=== PATIENT | female | born 1955 | race African-American/Black ===

== ENCOUNTER 2021-03-02 12:46 | Inpatient (IN) | payer MEDICARE, MEDICAID ==
[~2021-03-02] VITALS: Ht 157.5 cm; Wt 103.6 kg
[~2021-03-02 12:46] MED LIST: CARI350T27 PO; FESO4TAB PO; METF-415 PO; PREG75CA PO
[2021-03-02] MEDS ORDERED: NOREPINEPHRINE 8 MG in DEXT 5% WATER 242 ML IV STA (13:52)
[2021-03-02] MEDS ORDERED: VANCOMYCIN 1 G PREMIX 200 ML IV ONE (14:00)
[2021-03-02] MEDS ORDERED: SODIUM CHLORIDE 0.9% 1000ML BAG (SEPSIS BOLUS) IV ONE (14:00)
[2021-03-02] MEDS ORDERED: PIPERACILLIN/TAZ 3.375G PREMIX 50 ML IV ONE (14:00)
[2021-03-02 14:37] LABS: CHLORIDE 111 mEq/L (98-107)
[2021-03-02 14:40] LABS: INR 1.1
[2021-03-02] MEDS ORDERED: NOREPINEPHRINE 8MG/250ML PMX 250 ML IV STA (14:51)
[2021-03-02 15:16] LABS: BASOPHILS % 0.2 % (0.0-2.0); EOSINOPHILS % 0.4 % (0.0-5.0); HEMATOCRIT. 32.4 % (36.0-48.0); HEMOGLOBIN. 10.9 g/dL (12.0-16.0); LYMPHOCYTES % 11.4 % (20.0-50.0); MEAN CORPUSCULAR HEMOGLOBIN 30.9 pg (28.0-32.0); MEAN CORPUSCULAR VOLUME 91.7 fL (81.0-99.0); MONOCYTES % 6.5 % (2.0-8.0); NEUTROPHILS % 81.5 % (40.0-76.0); PLATELET 127 x1000/uL (130-400); RED BLOOD CELL COUNT 3.53 mill/uL (4.2-5.4); RED CELL DISTRIBUTION WIDTH 16.7 % (11.6-14.6)
[2021-03-02] MEDS ORDERED: FENTANYL CITRATE/PF 50MCG/ML 2ML VIAL IV ONE (17:30)
[2021-03-02 17:40] LABS: CLARITY URINE TURBID (CLEAR); COLOR URINE DARK YELLOW (YELLOW); KETONES URINE TRACE (NEGATIVE); LEUKOCYTE ESTERASE URINE 3+ (NEGATIVE); NITRITE URINE NEGATIVE (NEGATIVE); OCCULT BLOOD URINE 1+ (NEGATIVE); PROTEIN URINE 2+ (NEGATIVE); SPECIFIC GRAVITY URINE 1.024 (1.005-1.030)
[2021-03-02] MEDS ORDERED: IPRATROPIUM/ALBUTEROL 0.5-3(2.5)MG/3ML NEB HHN PRN (18:45)
[2021-03-02] MEDS ORDERED: MAGNESIUM/ALUMINUM HYDROXIDE/SIMETHICONE 30ML UDC PO PRN (20:00)
[2021-03-02] MEDS ORDERED: DEXTROSE 50% WATER 50ML SYRINGE IV PRN ×2 (20:00)
[2021-03-02] MEDS ORDERED: CLONIDINE 0.1MG TABLET PO PRN (20:00)
[2021-03-02] MEDS ORDERED: ONDANSETRON HCL 4MG/2ML INJ IV PRN (20:00)
[2021-03-02] MEDS: BLOOD SUGAR DIAGNOSTIC STRIP TEST SCH (21:00)
[2021-03-02] MEDS: PIPERACILLIN/TAZOBACTAM 2.25 G in DEXTROSE 5% WATER 50 ML IV SCH (22:22)
[2021-03-02] MEDS: INSULIN LISPRO 100 UNITS/ML SUBCUT SCH (22:24)
[2021-03-02] MEDS: HYDROCODONE/ACETAMINOPHEN 5/325MG TABLET PO PRN (22:24)
[2021-03-02] MEDS: SODIUM CHLORIDE 0.9% 1,000 ML IV SCH (22:39)
[2021-03-02] MEDS ORDERED: NOREPINEPHRINE 8MG/250ML PMX 250 ML IV PRN (23:00)
[2021-03-02] MEDS: ENOXAPARIN 30MG/0.3ML SYR SUBCUT SCH (23:06)
[2021-03-03] VITALS (45 sets, daily range): BP systolic 92–123; BP diastolic 49–70
[2021-03-03] MEDS: PIPERACILLIN/TAZOBACTAM 2.25 G in DEXTROSE 5% WATER 50 ML IV SCH ×2 (02:02→08:33)
[2021-03-03] MEDS: HYDROCODONE/ACETAMINOPHEN 5/325MG TABLET PO PRN ×5 (02:38→23:04)
[2021-03-03] MEDS: BLOOD SUGAR DIAGNOSTIC STRIP TEST SCH ×4 (06:49→21:00)
[2021-03-03] MEDS: OMEPRAZOLE 20MG CAPSULE EXTENDED RELEASE PO SCH (06:59)
[2021-03-03] MEDS: INSULIN LISPRO 100 UNITS/ML SUBCUT SCH ×4 (07:01→23:08)
[2021-03-03] MEDS: ACETAMINOPHEN 325MG TABLET PO PRN (12:04)
[2021-03-03] MEDS: NOREPINEPHRINE 32 MG in DEXT 5% WATER 218 ML IV PRN (12:34)
[2021-03-03 12:35] LABS: HEMATOCRIT. 31.7 % (36.0-48.0); HEMOGLOBIN. 10.2 g/dL (12.0-16.0); MEAN CORPUSCULAR HEMOGLOBIN 29.9 pg (28.0-32.0); MEAN CORPUSCULAR VOLUME 92.9 fL (81.0-99.0); MEAN PLATELET VOLUME 8.8 fl (7.4-10.4); PLATELET 107 x1000/uL (130-400); RED BLOOD CELL COUNT 3.41 mill/uL (4.2-5.4); RED CELL DISTRIBUTION WIDTH 16.9 % (11.6-14.6)
[2021-03-03 12:47] LABS: PHOSPHORUS 4.1 mg/dL (2.5-4.9)
[2021-03-03] MEDS: PIPERACILLIN/TAZOBACTAM 2.25G in DEXTROSE 5% WATER 50ML IV SCH ×2 (13:59→21:00)
[2021-03-03] MEDS: SODIUM CHLORIDE 0.9% 1,000 ML IV SCH (13:59)
[2021-03-03] MEDS ORDERED: VANCOMYCIN 500 MG PREMIX 100 ML IV SCH (14:00)
[2021-03-03 18:13] LABS: PLATELET ESTIMATE DECREASED
[2021-03-03] MEDS ORDERED: NALOXONE HCL 0.4MG/ML VIAL IV PRN (18:15)
[2021-03-03 20:38] LABS: BG BASE EXCESS -9.2 mmol/L (-2.0-2.0); BG DEOXYHEMOGLOBIN 2.1 % (0.0-5.0); BG FRACTION INSPIRED OXYGEN 36; BG HCO3 ACT 16.8 mmol/L (22.0-26.0); BG METHEMOGLOBIN 0.2 % (0.0-1.5); BG OXYGEN SATURATION 97.9 % (92.0-98.5); BG OXYHEMOGLOBIN 97.7 % (94.0-97.0); BG PCO2 37.1 mmHg (35.0-45.0); BG PH 7.275 (7.350-7.450); BG PO2 106.8 mmHg (75.0-100.0); BG SAMPLE SITE RIGHT BRACHIAL; BG TOTAL HEMOGLOBIN 10.2 g/dL (12.0-18.0); BG VENT MODE NASAL CANNULA
[2021-03-03] MEDS ORDERED: INSULIN GLARGINE UD 100 UNITS/ML SYR SUBCUT SCH (22:00)
[2021-03-03] MEDS: ENOXAPARIN 30MG/0.3ML SYR SUBCUT SCH (23:03)
[2021-03-03] MEDS: CEFEPIME 2,000 MG in DEXT 5% WATER 100 ML IV SCH (23:56)
[2021-03-04] VITALS (90 sets, daily range): BP systolic 77–135; BP diastolic 38–66
[2021-03-04] MEDS: HYDROCODONE/ACETAMINOPHEN 5/325MG TABLET PO PRN ×3 (04:27→21:06)
[2021-03-04] MEDS: OMEPRAZOLE 20MG CAPSULE EXTENDED RELEASE PO SCH (05:40)
[2021-03-04] MEDS: PIPERACILLIN/TAZOBACTAM 2.25G in DEXTROSE 5% WATER 50ML IV SCH (05:40)
[2021-03-04 05:45] LABS: BASOPHILS % 0.3 % (0.0-2.0); EOSINOPHILS % 5.6 % (0.0-5.0); HEMATOCRIT. 27.2 % (36.0-48.0); HEMOGLOBIN. 9.1 g/dL (12.0-16.0); LYMPHOCYTES % 8.1 % (20.0-50.0); MEAN CORPUSCULAR HEMOGLOBIN 30.6 pg (28.0-32.0); MEAN CORPUSCULAR VOLUME 91.5 fL (81.0-99.0); MEAN PLATELET VOLUME 9.2 fl (7.4-10.4); MONOCYTES % 5.3 % (2.0-8.0); NEUTROPHILS % 80.7 % (40.0-76.0); PLATELET 92 x1000/uL (130-400); RED BLOOD CELL COUNT 2.97 mill/uL (4.2-5.4)
[2021-03-04] MEDS: BLOOD SUGAR DIAGNOSTIC STRIP TEST SCH ×4 (06:57→20:52)
[2021-03-04] MEDS: INSULIN LISPRO 100 UNITS/ML SUBCUT SCH ×5 (08:12→21:04)
[2021-03-04 09:06] LABS: ABSOLUTE LYMPHOCYTES 0.8 x10E3/uL (0.7-3.1); ABSOLUTE MONOCYTES 0.3 x10E3/uL (0.1-0.9); ABSOLUTE NEUTROPHILS 13.8 x10E3/uL (1.4-7.0); BASOPHILS 0 % (Not Estab.); HEMATOCRIT 31.3 % (34.0-46.6); HEMATOLOGY COMMENT Note: (.); HEMOGLOBIN 10.3 g/dL (11.1-15.9); LYMPHOCYTES 5 % (Not Estab.); MEAN CORPUSCULAR HEMOGLOBIN 30.2 pg (26.6-33.0); MEAN CORPUSCULAR HGB CONC. 32.9 g/dL (31.5-35.7); MEAN CORPUSCULAR VOLUME 92 fL (79-97); MONOCYTES 2 % (Not Estab.); NEUTROPHILS 85 % (Not Estab.); PLATELETS 104 x10E3/uL (150-450); RBC 3.41 x10E6/uL (3.77-5.28); RED CELL DISTRIBUTION WIDTH 15.2 % (11.7-15.4); WBC 15.3 x10E3/uL (3.4-10.8)
[2021-03-04] MEDS ORDERED: LORAZEPAM 2MG/ML CPJ IV NR (10:45)
[2021-03-04] MEDS: CEFEPIME 2,000 MG in DEXT 5% WATER 100 ML IV SCH (11:06)
[2021-03-04] MEDS: SODIUM BICARBONATE 650 MG TABLET PO SCH ×3 (11:06→21:01)
[2021-03-04] MEDS: SODIUM CHLORIDE 0.9% 1,000 ML IV SCH ×2 (11:06→20:57)
[2021-03-04] MEDS ORDERED: CEFTRIAXONE 2 G PREMIX 50 ML IV SCH (12:45)
[2021-03-04 13:07] LABS: % CD 3 POS. LYMPHOCYTES 74.5 % (57.5-86.2); % CD 4 POS. LYMPHOCYTES 37.9 % (30.8-58.5); % CD 8 POS. LYMPH 38.5 % (12.0-35.5); ABSOLUTE CD 3 596 /uL (622-2402); ABSOLUTE CD 4 HELPER 303 /uL (359-1519); ABSOLUTE CD 8 SUPPRESSOR 308 /uL (109-897); CD4/CD8 RATIO 0.98 (0.92-3.72)
[2021-03-04] MEDS: CEFTRIAXONE 2 G in DEXTROSE 5% WATER 50 ML IV SCH (16:57)
[2021-03-04] MEDS: NOREPINEPHRINE 32 MG in DEXT 5% WATER 218 ML IV PRN (20:59)
[2021-03-04] MEDS: ENOXAPARIN 30MG/0.3ML SYR SUBCUT SCH (21:02)
[2021-03-05] VITALS (54 sets, daily range): BP systolic 55–130; BP diastolic 26–80
[2021-03-05] MEDS: HYDROCODONE/ACETAMINOPHEN 5/325MG TABLET PO PRN ×5 (01:45→21:00)
[2021-03-05 06:04] LABS: BASOPHILS % 0.6 % (0.0-2.0); EOSINOPHILS % 2.8 % (0.0-5.0); HEMATOCRIT. 27.2 % (36.0-48.0); HEMOGLOBIN. 9.2 g/dL (12.0-16.0); LYMPHOCYTES % 11.5 % (20.0-50.0); MEAN CORPUSCULAR HEMOGLOBIN 30.7 pg (28.0-32.0); MEAN CORPUSCULAR VOLUME 90.7 fL (81.0-99.0); MEAN PLATELET VOLUME 9.3 fl (7.4-10.4); MONOCYTES % 6.3 % (2.0-8.0); NEUTROPHILS % 78.8 % (40.0-76.0); PLATELET 98 x1000/uL (130-400); RED BLOOD CELL COUNT 2.99 mill/uL (4.2-5.4); RED CELL DISTRIBUTION WIDTH 16.9 % (11.6-14.6)
[2021-03-05] MEDS: SODIUM BICARBONATE 650 MG TABLET PO SCH ×3 (06:08→21:00)
[2021-03-05] MEDS: INSULIN LISPRO 100 UNITS/ML SUBCUT SCH ×4 (06:12→21:00)
[2021-03-05] MEDS: OMEPRAZOLE 20MG CAPSULE EXTENDED RELEASE PO SCH (06:14)
[2021-03-05] MEDS: BLOOD SUGAR DIAGNOSTIC STRIP TEST SCH ×4 (06:14→20:51)
[2021-03-05] MEDS: DOCUSATE SODIUM 100MG CAPSULE PO PRN (06:14)
[2021-03-05] MEDS ORDERED: MIDODRINE HCL 5MG TABLET PO NR (11:00)
[2021-03-05] MEDS: CETIRIZINE 10MG TABLET PO SCH (13:36)
[2021-03-05] MEDS: SODIUM CHLORIDE 0.9% 1,000 ML IV SCH (13:36)
[2021-03-05] MEDS: CEFTRIAXONE 2 G in DEXTROSE 5% WATER 50 ML IV SCH (14:50)
[2021-03-05] MEDS ORDERED: ENOXAPARIN 40MG/0.4ML SYR SUBCUT SCH (21:00)
[2021-03-06] VITALS (11 sets, daily range): BP systolic 111–141; BP diastolic 53–64
[2021-03-06] MEDS: HYDROCODONE/ACETAMINOPHEN 5/325MG TABLET PO PRN ×3 (02:07→21:21)
[2021-03-06 05:48] LABS: HEMOGLOBIN. 9.3 g/dL (12.0-16.0); MEAN CORPUSCULAR HEMOGLOBIN 30.4 pg (28.0-32.0); MEAN CORPUSCULAR VOLUME 91.8 fL (81.0-99.0); MEAN PLATELET VOLUME 9.1 fl (7.4-10.4); PLATELET 111 x1000/uL (130-400); RED BLOOD CELL COUNT 3.05 mill/uL (4.2-5.4); RED CELL DISTRIBUTION WIDTH 17.3 % (11.6-14.6)
[2021-03-06] MEDS: SODIUM BICARBONATE 650 MG TABLET PO SCH ×3 (06:22→21:19)
[2021-03-06] MEDS: OMEPRAZOLE 20MG CAPSULE EXTENDED RELEASE PO SCH (06:23)
[2021-03-06] MEDS: BLOOD SUGAR DIAGNOSTIC STRIP TEST SCH ×4 (07:47→21:00)
[2021-03-06] MEDS: INSULIN LISPRO 100 UNITS/ML SUBCUT SCH ×4 (07:47→21:00)
[2021-03-06] MEDS: CETIRIZINE 10MG TABLET PO SCH (08:48)
[2021-03-06] MEDS: ACETAMINOPHEN 325MG TABLET PO PRN (11:18)
[2021-03-06] MEDS: CEFTRIAXONE 2 G in DEXTROSE 5% WATER 50 ML IV SCH (15:33)
[2021-03-06] MEDS: ENOXAPARIN 30MG/0.3ML SYR SUBCUT SCH (21:20)
[2021-03-07] VITALS (13 sets, daily range): BP systolic 122–147; BP diastolic 58–81
[2021-03-07] MEDS: HYDROCODONE/ACETAMINOPHEN 5/325MG TABLET PO PRN ×3 (01:46→10:51)
[2021-03-07 04:11] LABS: *HIV-1 RNA BY PCR 150 copies/mL (.)
[2021-03-07] MEDS: SODIUM BICARBONATE 650 MG TABLET PO SCH ×3 (06:47→22:06)
[2021-03-07] MEDS: OMEPRAZOLE 20MG CAPSULE EXTENDED RELEASE PO SCH (06:48)
[2021-03-07] MEDS: BLOOD SUGAR DIAGNOSTIC STRIP TEST SCH ×4 (07:30→19:51)
[2021-03-07] MEDS: CEFAZOLIN 2,000 MG in DEXT 5% WATER 100 ML IV SCH ×3 (08:41→16:27)
[2021-03-07] MEDS: CETIRIZINE 10MG TABLET PO SCH (08:41)
[2021-03-07] MEDS: ENOXAPARIN 30MG/0.3ML SYR SUBCUT SCH ×2 (08:41→20:35)
[2021-03-07] MEDS: INSULIN LISPRO 100 UNITS/ML SUBCUT SCH ×4 (08:42→20:33)
[2021-03-07 09:13] LABS: PLATELET ESTIMATE DECREASED
[2021-03-07] MEDS: DOCUSATE SODIUM 100MG CAPSULE PO PRN ×2 (10:50→18:47)
[2021-03-07] MEDS ORDERED: CETI10TA6 PO (13:39)
[2021-03-07] MEDS ORDERED: OMEP20CA14 PO (13:39)
[2021-03-07] MEDS ORDERED: LEVO750T46 MT (13:44)
[2021-03-07] MEDS ORDERED: ALBU6.7H9 INH (13:44)
[2021-03-07] MEDS: ACETAMINOPHEN 325MG TABLET PO PRN (17:38)
[2021-03-07] MEDS ORDERED: HYDROCODONE/ACETAMINOPHEN 5/325MG TABLET PO PRN (22:30)
[2021-03-08] VITALS: BP 132/65
== END 2021-03-08 00:04 | disposition home health service (06) | DRG 974 ==
LOC: ER 12:46 → EDBEDREQSVC 13:57 → EDBEDREQ 13:57 → MICUSO 21:18 → MICUNO 03-03 09:04 → 5EST 03-05 18:00
PROVIDERS: ADMIT Family Medicine Adult Medicine; ATTEND Family Medicine Adult Medicine
PROC: 05HY33Z Insertion of Infusion Device into Upper Vein, Percutaneous Approach (ICD-10-PCS; principal; 2021-03-02)
PROC: B54MZZA Ultrasonography of Right Upper Extremity Veins, Guidance (ICD-10-PCS; 2021-03-02)
DX: A41.51 Sepsis due to Escherichia coli [E. coli] (principal); R65.21 Severe sepsis with septic shock; B20 Human immunodeficiency virus [HIV] disease; N17.0 Acute kidney failure with tubular necrosis; E44.0 Moderate protein-calorie malnutrition; N13.6 Pyonephrosis; E87.2 Acidosis; I31.3 Pericardial effusion (noninflammatory); Z68.41 Body mass index [BMI] 40.0-44.9, adult; I69.354 Hemiplegia and hemiparesis following cerebral infarction affecting left non-dominant side; Z20.822 Contact with and (suspected) exposure to COVID-19; E11.21 Type 2 diabetes mellitus with diabetic nephropathy; D63.8 Anemia in other chronic diseases classified elsewhere; E11.51 Type 2 diabetes mellitus with diabetic peripheral angiopathy without gangrene; M54.5 Low back pain; D69.6 Thrombocytopenia, unspecified; E86.0 Dehydration; E78.5 Hyperlipidemia, unspecified; I25.10 Atherosclerotic heart disease of native coronary artery without angina pectoris; I10 Essential (primary) hypertension; I27.20 Pulmonary hypertension, unspecified; L29.9 Pruritus, unspecified; Z87.891 Personal history of nicotine dependence; Z89.511 Acquired absence of right leg below knee; Z89.512 Acquired absence of left leg below knee; Z95.1 Presence of aortocoronary bypass graft
CPT/HCPCS: 36415; 36600; 71045; 72131; 76770; 76937; 80048; 80053; 80076; 80202; 81003; 82375; 82805; 82962; 83036; 83605; 83735; 84100; 84145; 84484; 85025; 86359; 86360; 87077; 87186; 87426; 87536; 93005; 93306; 93970; 97161; 99291; C1725; J0690; J0692; J0696; J1650; J1815; J2060; J2405; J2543; J3010; J3370; J3490; J7030; J7060; U0003; U0005; A4315